=== PATIENT | male | born 1985 | race Caucasian/White ===

== ENCOUNTER 2020-04-20 01:05 | Emergency (ER) | payer OTHER ==
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
[2020-04-20 01:14] VITALS: BP 122/78
[2020-04-20 01:43] LABS: MUDS CUTOFF CONCENTRATIONS CUTOFF CONC BELOW:
[2020-04-20 01:49] LABS: BILIRUBIN,URINE NEGATIVE (NEGATIVE); GLUCOSE, URINE (UA) NEGATIVE (NEGATIVE); KETONES,URINE (UA) NEGATIVE (NEGATIVE); LEUKOCYTE ESTERASE, URINE NEGATIVE (NEGATIVE); NITRITE,URINE NEGATIVE (NEGATIVE); OCCULT BLOOD,URINE NEGATIVE (NEGATIVE); PH,URINE 6.5 PH (5.0-7.5); PROTEIN,URINE NEGATIVE (NEGATIVE); UROBILINOGEN,URINE 0.2 (NORMAL) E.U./dL (NORMAL)
[2020-04-20 01:51] LABS: CLARITY,URINE CLEAR (CLEAR)
[2020-04-20 01:59] LABS: AMPHETAMINE SCREEN,URINE NEGATIVE (NEGATIVE); BENZODIAZEPINES SCREEN, URINE NEGATIVE (NEGATIVE); COCAINE SCREEN URINE NEGATIVE (NEGATIVE); METHADONE SCREEN, URINE NEGATIVE (NEGATIVE); METHAMPHETAMINES SCREEN, URINE NEGATIVE (NEGATIVE); OPIATE SCREEN, URINE NEGATIVE (NEGATIVE); OXYCODONE SCREEN, URINE NEGATIVE (NEGATIVE); PROPOXYPHENE SCREEN, URINE NEGATIVE (NEGATIVE); TRICYCLIC ANTIDEPRESSANT,URINE NEGATIVE (NEGATIVE)
[2020-04-20 02:17] LABS: HGB - HEMOGLOBIN 14.1 g/dL (14.0-18.0)
[2020-04-20 02:29] LABS: GLUCOSE 103 mg/dL (70-100)
== END 2020-04-20 02:49 | disposition home or self-care (01) ==
LOC: ED 01:05
DX: Z02.89 Encounter for other administrative examinations (principal)
CPT/HCPCS: 36415; 80306; 80320; 81001; 81003; 82375; 82947; 85014; 85018; 87086; 99281; 99283